=== PATIENT | female | born 1965 | race Caucasian/White ===

== ENCOUNTER 2018-04-13 18:36 | Emergency (ER) | payer SELFPAY ==
[2018-04-13] MEDS ORDERED: Ondansetron ODT 4 MG TAB ONE (18:40)
[2018-04-13] MEDS ORDERED: Ibuprofen 800 MG TAB ONE (19:03)
== END 2018-04-13 19:34 | disposition home or self-care (01) ==
LOC: ERS 18:36
DX: S00.12XA Contusion of left eyelid and periocular area, initial encounter (principal); J01.90 Acute sinusitis, unspecified; R11.2 Nausea with vomiting, unspecified; F90.9 Attention-deficit hyperactivity disorder, unspecified type; Z79.899 Other long term (current) drug therapy; W22.8XXA Striking against or struck by other objects, initial encounter
CPT/HCPCS: 99283; Q0162

== ENCOUNTER 2018-10-28 08:23 | Outpatient (CLI) | payer OTHER ==
--- NOTE | 2018-11-06 15:19 | MMO ---
Bilateral MAMMO Bilat Screen [facility]DI. CLINICAL HISTORY: Patient is 53 years old and is seen for screening. The patient has the following family history of breast cancer: maternal aunt, at age 75 and maternal grandmother, at age 57. The patient has no personal history of cancer. VIEWS: The views performed were: bilateral craniocaudal and bilateral mediolateral oblique. FILMS COMPARED: The present examination has been compared to prior imaging studies performed at [facility] on 11/17/2014, 03/16/2016 and 11/29/2017. This study has been interpreted with the assistance of computer-aided detection. MAMMOGRAM FINDINGS: There are scattered fibroglandular densities. There are no suspicious masses, suspicious calcifications, or new areas of architectural distortion. IMPRESSION: THERE IS NO MAMMOGRAPHIC EVIDENCE OF MALIGNANCY. A ROUTINE FOLLOW-UP MAMMOGRAM IN 1 YEAR IS RECOMMENDED. ACR BI-RADS Category 1 - Negative MAMMOGRAPHY NOTE: 1. A negative mammogram report should not delay a biopsy if a dominant of clinically suspicious mass is present. 2. Approximately 10% to 15% of breast cancers are not detected by mammography. 3. Adenosis and dense breasts may obscure an underlying neoplasm. Reported by: YOUNG RASHID MD Electonically Signed: [id number]
== END 2018-10-28 08:24 | disposition home or self-care (01) ==
LOC: SCSMAMMO 08:23
PROVIDERS: ATTEND Family Medicine
DX: Z12.31 Encounter for screening mammogram for malignant neoplasm of breast (principal); Z80.3 Family history of malignant neoplasm of breast
CPT/HCPCS: 77067